=== PATIENT | female | born 1985 | race Caucasian/White ===

== ENCOUNTER 2016-04-01 09:29 | Inpatient (IN) | payer BC ==
[~2016-04-01] VITALS: Ht 157.5 cm; Wt 70.3 kg
[~2016-04-01 09:29] MED LIST: CALNTAB; SLOW47.5
[2016-04-01] MEDS ORDERED: LACTATED RINGER'S 1000 ML INJ 1,000 ML IV PRN (10:26)
[2016-04-01] MEDS ORDERED: LACTATED RINGER'S 1000 ML INJ 1,000 ML IV SCH (10:26)
[2016-04-01] MEDS ORDERED: LIDOCAINE HCL 1% 50 ML VIAL I-DERMAL PRN (10:30)
[2016-04-01] MEDS ORDERED: ONDANSETRON HCL 4 MG/2 ML VIAL IV PRN (10:30)
[2016-04-01] MEDS ORDERED: OXYTOCIN 30 UNITS-500ML PREMIX 500 ML IV ONE (10:30)
[2016-04-01] MEDS ORDERED: LIDOCAINE HCL 1% 50 ML VIAL INFIL PRN (10:30)
[2016-04-01] MEDS ORDERED: SODIUM CHLORID 0.9% 500 ML INJ 500 ML IV PRN (10:30)
[2016-04-01] MEDS ORDERED: MINERAL OIL 10 ML VIAL TOPICAL PRN (10:30)
[2016-04-01] MEDS ORDERED: CITRIC ACID-SODIUM CITRATE LIQ 30 ML UDC PO SCH (10:30)
[2016-04-01] MEDS ORDERED: SODIUM CHLOR 0.9% 1000 ML INJ 1,000 ML IV PRN (10:46)
[2016-04-01 10:47] LABS: AUTOMATED NEUTROPHIL # 8.2 TH/MM3 (1.8-7.7); BASOPHIL # 0.1 TH/MM3 (0-0.2); BASOPHIL % 0.6 % (0.0-2.0); EOSINOPHIL # 0.1 TH/MM3 (0-0.4); EOSINOPHIL % 0.8 % (0.0-4.0); HEMATOCRIT 31.8 % (35.0-46.0); LYMPH % 16.1 % (9.0-44.0); LYMPHOCYTE # 1.7 TH/MM3 (1.0-4.8); MEAN CELL VOLUME 91.4 FL (80.0-100.0); MEAN CORPUSCULAR HEMOGLOBIN 32.8 PG (27.0-34.0); MEAN CORPUSCULAR HGB CONC 35.9 % (32.0-36.0); MONO % 5.4 % (0.0-8.0); NEUT % 77.1 % (16.0-70.0); PLATELET COUNT 72 TH/MM3 (150-450); RED BLOOD COUNT 3.48 MIL/MM3 (4.00-5.30); RED CELL DISTRIBUTION WIDTH 14.8 % (11.6-17.2); WHITE BLOOD COUNT 10.7 TH/MM3 (4.0-11.0)
[2016-04-01 10:55] LABS: BACTERIA, URINE OCC /hpf; BLOOD, URINE NEG (NEG); GLUCOSE,URINE NEG (NEG); KETONE, URINE 40 mg/dL (NEG); MUCUS URINE FEW /lpf (OCC); NITRITE,URINE NEG (NEG); PH, URINE 6.5 (5.0-8.5); SQUAMOUS EPITHELIAL CELL URINE 9 /hpf (0-5)
[2016-04-01 10:56] LABS: URINE COLOR AMBER (YELLW/STRAW)
[2016-04-01 10:58] LABS: COMMENT (UR) CULT NOT INDICATED; CULTURE IF INDICATED CULT NOT INDICATED
[2016-04-01 11:07] LABS: HEMO FLAGS AUTO DIFF
[2016-04-01 11:39] LABS: BANDS 2 % (0-6); CORRECTED NUCLEATED RBC 1 /100 WBC (0-0); EOSINOPHILS 2 % (0-4); METAMYELOCYTES 1 % (0-1); MYELOCYTES 2 % (0-0); PLATELET ESTIMATE SMEAR LOW (NORMAL); PLATELET MORPHOLOGY NORMAL (NORMAL); POLYS (SEG NEUTROPHILS) 79 % (16-70); SCAN/DIFF FINAL DIFF MANUAL; WBC DIFF SAMPLE 100
[2016-04-01 12:34] LABS: ALKALINE PHOSPHATASE 169 U/L (45-117); ALT (GPT) 420 U/L (10-53); ANION GAP 13 MEQ/L (5-15); AST (GOT) 202 U/L (15-37); BICARBONATE 18.1 MEQ/L (21.0-32.0); BLOOD UREA NITROGEN 17 MG/DL (7-18); CHLORIDE 103 MEQ/L (98-107); GLOMERULAR FILTRATION RATE 88 ML/MIN (>89); POTASSIUM 3.8 MEQ/L (3.5-5.1); SODIUM (NA) 134 MEQ/L (136-145); TOTAL BILIRUBIN ADULT 2.6 MG/DL (0.2-1.0); URIC ACID 9.4 MG/DL (2.6-6.0)
[2016-04-01] MEDS ORDERED: MAGNESIUM SULFATE 4 GM PREMIX 100 ML IV ONE (13:00)
[2016-04-01] MEDS ORDERED: SODIUM CHLORIDE 0.9% FLUSH 5 ML FLUSH IV FLUSH PRN (13:00)
[2016-04-01] MEDS ORDERED: SODIUM CHLORIDE 0.9% FLUSH 5 ML FLUSH IV FLUSH SCH (13:00)
[2016-04-01] MEDS ORDERED: DINOPROSTONE 10 MG VAG INSERT VAGINAL ONE (13:00)
[2016-04-01] MEDS ORDERED: MAGNESIUM SULFATE 40 GM PREMIX 1,000 ML IV SCH (13:30)
[2016-04-01] MEDS ORDERED: LIDOCAINE 2% JELLY 30 ML TUBE ONE (13:42)
--- NOTE | 2016-04-01 14:47 | HHI.HP ---
HPI Chief Complaint Contractions, increased blood pressure Date Seen: Apr 01, 2016 Time Seen: 11:00 Travel History International Travel<30 Days: No Contact w/Intl Traveler<30Days: No Known Affected Area: No History of Present Illness HPI 30-year-old at 38 weeks and 6 days of gestation, EDC 04/09/16, patient presents to labor and delivery complaining of contractions, she is noted to have contractions every 2-3 minutes and increased blood pressure, patient denies headaches, blurry vision. She is complaining of right upper quadrant pain and right sided rib pain. He denies leakage of fluids, vaginal bleeding. She reports presence of movements. The patient and in OB ED is: 125/93, 137/95, 133/88, 138/94, 146/97, 149/91. Blood work shows AST 202, ALT 420, uric acid 9.4, urinalysis reveals protein 30, platelets is 72. Findings consistent with possible HELLP syndrome. care is with Dr. David lora. course is unremarkable Para: 0 : 1 Miscarriage: 0 : 0 History Past Medical History Narrative Medical Denies Medical History: Denies Significant Hx Obstetric History Obstetric History Primigravida Past Surgical History Narrative Surgical Status post right knee surgery/arthroscopy Family History Narrative Family History Father with diabetes Social History Alcohol Use: No Tobacco Use: No Substance Abuse: No Allergies-Medications (Allergen,Severity, Reaction): Coded Allergies: No Known Allergies (Unverified , 03/29/16) Home Meds Reported Medications Vitamin (Calna)1 Tab Tab 03/29/16 Ferrous Sulfate Dried (Iron Slow Release)45 Mg Tab 03/29/16 Review of Systems Except as stated in HPI: all other systems reviewed are Neg Cardiovascular: Other (increased blood pressure) Gastrointestinal: Abdominal Pain Genitourinary: Other (contractions) Physical Exam Narrative GENERAL: Well-nourished, well-developed patient. SKIN: Warm and dry. HEAD: Normocephalic and atraumatic. EYES: No scleral icterus. No injection or drainage. ENT: No nasal drainage noted. Mucous membranes pink. Airway patent. NECK: Supple, trachea midline. No JVD. CARDIOVASCULAR: Regular rate and rhythm without murmurs, gallops, or rubs. RESPIRATORY: Breath sounds equal bilaterally. No accessory muscle use. BREASTS: Bilateral exam showed no masses , no retractions, no nipple discharge. ABDOMEN/GI: Abdomen soft, gravid, non-tender, bowel sounds present, no rebound, no guarding Gravid to 39 weeks size Fundal Height: 39 cm GENITOURINARY: External Genitalia: intact and normal in appearance BUS glands: Normal Cervix: 1 cm, 50%, -3, posterior Dilatation: 1 cm Effacement: 50% Station: -3 Presentation: Cephalic Membranes: Intact Uterine Contractions: Patient is radha every 2-3 minutes FHT's: Category: one Baseline: 120s Reactive: Reassuring Variability: Moderate Decels: None EXTREMITIES: No cyanosis or edema. BACK: Nontender without obvious deformity. No CVA tenderness. NEUROLOGICAL: Awake and alert. Motor and sensory grossly within normal limits. Five out of 5 muscle strength in all muscle groups. Normal speech. Data Data Vital Signs Reviewed: Yes Orders Admit To Inpatient (04/01/16 ) Code Status (04/01/16 10:26) Vital Signs (Adult) .Per protocol (04/01/16 10:26) Activity Oob Ad Rosalind (04/01/16 10:26) ^ Heart (04/01/16 10:26) ^ Amnioinfusion (04/01/16 10:26) Urinary Catheter Management .ONCE (04/01/16 10:26) Diet Liquid (04/01/16 Lunch) Lactated Ringer's 1000 Ml Inj (Lr 1000 M (04/01/16 10:26) Lactated Ringer's 1000 Ml Inj (Lr 1000 M (04/01/16 10:26) Sodium Chlorid 0.9% 500 Ml Inj (Ns 500 M (04/01/16 10:30) Sodium Chlor 0.9% 1000 Ml Inj (Ns 1000 M (04/01/16 10:46) Lidocaine 1% Inj (50 Ml) (Xylocaine 1% I (04/01/16 10:30) Citric Acid-Sodium Citrate Liq (Bicitra (04/01/16 10:30) Ondansetron Inj (Zofran Inj) (04/01/16 10:30) Fentanyl Inj (Fentanyl Inj) (04/01/16 10:30) Fentanyl Inj (Fentanyl Inj) (04/01/16 10:30) Complete Blood Count With Diff (04/01/16 10:26) Hold Clot (04/01/16 10:26) Abo/Rh Blood Type (04/01/16 10:26) Urinalysis - C+S If Indicated (04/01/16 10:26) Type And Screen (04/01/16 10:26) Resp Oxygen Non Rebreathe Mask (04/01/16 ) ^ Epidural / Intrathecal Infus (04/01/16 10:26) Oxytocin 30 Units-500ml Premix (Pitocin (04/01/16 10:30) Lidocaine 1% Inj (50 Ml) (Xylocaine 1% I (04/01/16 10:30) Light Mineral Oil (Muri-Lube Oil) (04/01/16 10:30) Inpatient Certification (04/01/16 ) Ob (2e) Additional Admit Info (04/01/16 10:35) Comprehensive Metabolic Panel (04/01/16 11:56) Uric Acid (04/01/16 11:56) Total Protein 24hr Urine (04/01/16 11:56) Creatinine 24 Hr Urine (04/01/16 11:56) Magnesium Sulfate 40 Gm Premix (Magnesiu (04/01/16 13:30) Magnesium Sulfate 4 Gm Premix (Magnesium (04/01/16 13:00) Vital Signs (Adult) Q5MX4,Q15MX4,Q30MX2,Q1H (04/01/16 12:48) Urinary Catheter Management SENDY.Q8H (04/01/16 12:48) ^ Check Deep Tendon Reflexes Q1H (04/01/16 12:48) ^ Labor Induction (04/01/16 12:48) ^ Vaginal Insert (04/01/16 12:48) ^ Vaginal Lavage (04/01/16 12:48) ^ Heart (04/01/16 12:48) Sodium Chloride 0.9% Flush (Ns Flush) (04/01/16 13:00) Sodium Chloride 0.9% Flush (Ns Flush) (04/01/16 13:00) Dinoprostone Vag Insert (Cervidil Vag In (04/01/16 13:00) Activity Bed Rest (04/01/16 12:48) Intake + Output Q1H (04/01/16 12:48) Equip, Iv Pump Triple Use Of (04/01/16 13:18) Lidocaine 2% Jelly (Xylocaine 2% Jelly) (04/01/16 13:42) Protein Creat Ratio, Random Ur (04/01/16 14:09) Fibrinogen (04/01/16 14:09) Labs Laboratory Tests Test 04/01/16 10:30 White Blood Count 10.7 Red Blood Count 3.48 Hemoglobin 11.4 Hematocrit 31.8 Mean Corpuscular Volume 91.4 Mean Corpuscular Hemoglobin 32.8 Mean Corpuscular Hemoglobin 35.9 Concent Red Cell Distribution Width 14.8 Platelet Count 72 Mean Platelet Volume 10.5 Neutrophils (%) (Auto) 77.1 Lymphocytes (%) (Auto) 16.1 Monocytes (%) (Auto) 5.4 Eosinophils (%) (Auto) 0.8 Basophils (%) (Auto) 0.6 Neutrophils # (Auto) 8.2 Lymphocytes # (Auto) 1.7 Monocytes # (Auto) 0.6 Eosinophils # (Auto) 0.1 Basophils # (Auto) 0.1 CBC Comment AUTO DIFF Differential Total Cells 100 Counted Neutrophils % (Manual) 79 Band Neutrophils % 2 Lymphocytes % 11 Monocytes % 3 Eosinophils % 2 Neutrophils # (Manual) 9.0 Metamyelocytes 1 Myelocytes 2 Nucleated Red Blood Cells 1 Differential Comment FINAL DIFF MANUAL Platelet Estimate LOW Platelet Morphology Comment NORMAL Urine Color CARLOS Urine Turbidity HAZY Urine pH 6.5 Urine Specific [place] 1.021 Urine Protein 30 Urine Glucose (UA) NEG Urine Ketones 40 Urine Occult Blood NEG Urine Nitrite NEG Urine Bilirubin SMALL Urine Urobilinogen 4.0 Urine Leukocyte Esterase NEG Urine RBC LESS THAN 1 Urine WBC 4 Urine Squamous Epithelial 9 Cells Urine Bacteria OCC Urine Mucus FEW Microscopic Urinalysis Comment CULT NOT INDICATED Sodium Level 134 Potassium Level 3.8 Chloride Level 103 Carbon Dioxide Level 18.1 Anion Gap 13 Blood Urea Nitrogen 17 Creatinine 0.76 Estimat Glomerular Filtration 88 Rate Random Glucose 66 Uric Acid 9.4 Calcium Level 8.9 Total Bilirubin 2.6 Aspartate Amino Transf 202 (AST/SGOT) Alanine Aminotransferase 420 (ALT/SGPT) Alkaline Phosphatase 169 Total Protein 6.3 Albumin 2.3 Blood Type O POSITIVE Antibody Screen NEGATIVE Blood Bank Comment Band and Hold Assessment/Plan Problem List: (1) 39 weeks gestation of (2) HELLP syndrome in third trimester (3) Pre-eclampsia in third trimester Assessment and Plan at 38 weeks and 6 days of gestation in early labor. Reassuring heart status. GBS negative. 1. Probable HELLP syndrome: * Admit patient to labor and delivery for induction of labor, Cervidil for cervical ripening. * Preeclamptic blood work every 6 hours, * Monitor AST and ALT, fibrinogen level, platelets level. * magnesium sulfate for seizure prophylaxis * Antihypertensive therapy * Bleeding precautions * Type and crossmatch 2 units of blood and platelets 2. Preeclampsia * Monitor blood pressures * Magnesium sulfate for seizure prophylaxis * Watch for signs and symptoms of preeclampsia * Admission blood work Monitor progress of labor, anticipate vaginal delivery. Dr. Holt is notified Discharge Planning We'll discharge patient to home in 2-3 days after delivery Luis Enrique Alonso MD Apr 01, 2016 14:47
[2016-04-01 16:15] LABS: HEMATOCRIT 31.5 % (35.0-46.0); MEAN CELL VOLUME 92.6 FL (80.0-100.0); MEAN CORPUSCULAR HEMOGLOBIN 32.7 PG (27.0-34.0); MEAN CORPUSCULAR HGB CONC 35.3 % (32.0-36.0); PLATELET COUNT 83 TH/MM3 (150-450); RED CELL DISTRIBUTION WIDTH 14.9 % (11.6-17.2); WHITE BLOOD COUNT 10.7 TH/MM3 (4.0-11.0)
[2016-04-01 16:18] LABS: REVIEW FLAG FINAL
[2016-04-01 16:38] LABS: APTT (PATIENT) 27.1 SEC (24.3-30.1); INTERNATIONAL NORMALIZED RATIO 0.9 RATIO; PROTHROMBIN TIME - PATIENT 9.4 SEC (9.8-11.6)
--- NOTE | 2016-04-01 16:55 | PD.LABORPN ---
Subjective Subjective pt c/o mild RUQ pain. denies n/v/SOB/CP Objective Vital Signs 140s/90s Objective Pelvic Exam: Cervix: [-] Dilatation: [3] Effacement: [80] Station: [-1] Presentation: [vtx] Membranes: [ruptured, clears] Uterine Contractions: [-] FHT's: Category: [1] Baseline: [140s] Reactive: [yes] Variability: [-] Decels: [-] Assessment/Plan Problem List: (1) HELLP syndrome in third trimester Plan: cont magnesium s/p cervidil will start pitocin after epidural reviewed disease pathology and possible reasons for Brice Holt MD Apr 01, 2016 16:55
[2016-04-01] MEDS ORDERED: fentaNYL 2MCG-BUPIV 0.125% INJ 100 ML ONE (16:59)
[2016-04-01] MEDS ORDERED: OXYTOCIN 30 UNITS-500ML PREMIX 500 ML IV SCH (17:00)
[2016-04-01] MEDS ORDERED: NO SYSTEM NARCOTICS XX PRN (18:15)
[2016-04-01] MEDS ORDERED: ePHEDrine/NS 50 MG/5 ML SYR IV PRN (18:15)
[2016-04-01] MEDS ORDERED: DO NOT ADMINISTER ANTICOAGULANTS XX PRN (18:15)
[2016-04-01] MEDS ORDERED: fentaNYL 2MCG-BUPIV 0.125% INJ 100 ML EPIDURAL SCH (18:15)
[2016-04-01 21:32] LABS: AUTOMATED NEUTROPHIL # 8.1 TH/MM3 (1.8-7.7); BASOPHIL % 0.3 % (0.0-2.0); EOSINOPHIL # 0.1 TH/MM3 (0-0.4); EOSINOPHIL % 0.7 % (0.0-4.0); HEMATOCRIT 34.1 % (35.0-46.0); LYMPH % 17.8 % (9.0-44.0); LYMPHOCYTE # 1.9 TH/MM3 (1.0-4.8); MEAN CELL VOLUME 93.1 FL (80.0-100.0); MEAN CORPUSCULAR HEMOGLOBIN 33.4 PG (27.0-34.0); MEAN CORPUSCULAR HGB CONC 35.9 % (32.0-36.0); MONO % 4.8 % (0.0-8.0); NEUT % 76.4 % (16.0-70.0); PLATELET COUNT 102 TH/MM3 (150-450); RED BLOOD COUNT 3.66 MIL/MM3 (4.00-5.30); RED CELL DISTRIBUTION WIDTH 14.4 % (11.6-17.2); WHITE BLOOD COUNT 10.6 TH/MM3 (4.0-11.0)
[2016-04-01 21:35] LABS: HEMO FLAGS AUTO DIFF
[2016-04-01 21:50] LABS: APTT (PATIENT) 29.7 SEC (24.3-30.1); INTERNATIONAL NORMALIZED RATIO 0.9 RATIO; PROTHROMBIN TIME - PATIENT 9.4 SEC (9.8-11.6)
[2016-04-01 22:06] LABS: BANDS 5 % (0-6); CORRECTED NUCLEATED RBC 2 /100 WBC (0-0); EOSINOPHILS 2 % (0-4); METAMYELOCYTES 3 % (0-1); NEUTROPHIL # MANUAL DIFF 8.5 TH/MM3 (1.8-7.7); POLYS (SEG NEUTROPHILS) 72 % (16-70); WBC DIFF SAMPLE 100
[2016-04-01 22:07] LABS: KERATOCYTES OCC (NORMAL); OVALOCYTES 1+ (NORMAL); PLATELET ESTIMATE SMEAR LOW (NORMAL); PLATELET MORPHOLOGY NORMAL (NORMAL); POLYCHROMASIA 2.7 % (0.0-1.9); SCAN/DIFF FINAL DIFF MANUAL; SPHEROCYTES 2+ (NORMAL); URIC ACID 9.4 MG/DL (2.6-6.0)
--- NOTE | 2016-04-02 01:45 | PD.OB.DELI ---
Delivery Date: Apr 02, 2016 Anesthesia: Epidural Episiotomy: None Vaginal Delivery: Normal Presentation: Occiput anterior Nuchal Cord: None : Female, Single One Minute : 8 Ten Minute : 9 Weight: 7-5 Infant Care: Suctioned, Spontaneous crying, Responded to stimulation Placenta: Spontaneous delivery, Intact, 3 vessel cord Laceration: Perineal laceration, 3 deg, Involving anal sphincter (repaired with 2-0 and 3-0 chromic in the usual fashion) Repair: Chromic interrupted Brice Holt MD Apr 02, 2016 01:45
[2016-04-02] MEDS ORDERED: MAGNESIUM SULFATE 40 GM PREMIX 1,000 ML IV SCH (01:46)
[2016-04-02] MEDS ORDERED: LACTATED RINGER'S 1000 ML INJ 1,000 ML IV SCH (01:46)
[2016-04-02] MEDS ORDERED: WITCH HAZEL 50%/GLYCERIN 12.5% 40 PAD JAR TOPICAL PRN (02:00)
[2016-04-02] MEDS ORDERED: HYDROCORTISONE/PRAMOXINE RECTAL FOAM 10 GM CAN RECTAL PRN (02:00)
[2016-04-02] MEDS ORDERED: oxyCODONE/ACETAMINOPHEN 5 MG/325 MG TAB PO PRN (02:00)
[2016-04-02] MEDS ORDERED: ZOLPIDEM TARTRATE 5 MG TAB PO PRN (02:00)
[2016-04-02] MEDS ORDERED: ACETAMINOPHEN 325 MG TAB PO PRN (02:00)
[2016-04-02] MEDS ORDERED: CALCIUM GLUCONATE 10% 1 GM/10 ML VIAL IV PUSH PRN (02:00)
[2016-04-02] MEDS ORDERED: OXYTOCIN 10 UNIT/ML AMP XX PRN (02:00)
[2016-04-02] MEDS ORDERED: ALUMINUM/MAGNESIUM/SIMETH 30 ML CUP PO PRN (02:00)
[2016-04-02] MEDS ORDERED: ONDANSETRON ODT 4 MG TAB PO PRN (02:00)
[2016-04-02] MEDS ORDERED: BENZOCAINE 20% TOPICAL SPRAY 60 ML CAN TOPICAL PRN (02:00)
[2016-04-02] MEDS ORDERED: SODIUM CHLORIDE 0.9% FLUSH 5 ML FLUSH IV PRN ×2 (02:00)
[2016-04-02] MEDS ORDERED: OXYTOCIN 30 UNITS-500ML PREMIX 500 ML IV ONE (02:00)
[2016-04-02] MEDS ORDERED: NIFEdipine 10 MG CAP PO PRN ×3 (02:00→02:30)
[2016-04-02] MEDS ORDERED: DOCUSATE SODIUM 50 MG/SENNA 8.6 MG TAB PO PRN (02:00)
[2016-04-02] MEDS ORDERED: LABETALOL HCL 100 MG/20 ML VIAL IV PUSH PRN (03:00)
[2016-04-02 07:12] LABS: ALKALINE PHOSPHATASE 136 U/L (45-117); ALT (GPT) 298 U/L (10-53); ANION GAP 13 MEQ/L (5-15); AST (GOT) 139 U/L (15-37); BICARBONATE 21.8 MEQ/L (21.0-32.0); BLOOD UREA NITROGEN 14 MG/DL (7-18); CHLORIDE 96 MEQ/L (98-107); GLOMERULAR FILTRATION RATE 74 ML/MIN (>89); SODIUM (NA) 131 MEQ/L (136-145); TOTAL BILIRUBIN ADULT 1.8 MG/DL (0.2-1.0); URIC ACID 9.5 MG/DL (2.6-6.0)
[2016-04-02 07:59] VITALS: RESP 20
[2016-04-02 08:00] VITALS: BP 129/76; PULSE 71
[2016-04-02 08:35] LABS: HEMATOCRIT 22.9 % (35.0-46.0); MEAN CELL VOLUME 92.9 FL (80.0-100.0); MEAN CORPUSCULAR HEMOGLOBIN 33.1 PG (27.0-34.0); MEAN CORPUSCULAR HGB CONC 35.6 % (32.0-36.0); PLATELET COUNT 101 TH/MM3 (150-450); RED BLOOD COUNT 2.46 MIL/MM3 (4.00-5.30); RED CELL DISTRIBUTION WIDTH 14.7 % (11.6-17.2); REVIEW FLAG FINAL; WHITE BLOOD COUNT 16.2 TH/MM3 (4.0-11.0)
[2016-04-02 09:00] VITALS: BP 123/82; PULSE 74
[2016-04-02] MEDS ORDERED: SODIUM CHLORIDE 0.9% FLUSH 5 ML FLUSH IV SCH ×2 (09:00)
[2016-04-02 09:48] VITALS: RESP 20
[2016-04-02] MEDS: IBUPROFEN 600 MG TAB PO PRN ×3 (10:09→22:55)
[2016-04-02] MEDS ORDERED: MEASLES, MUMPS, RUBELLA VACCINE 0.5 ML VIAL SQ ONE (16:00)
[2016-04-02] MEDS ORDERED: DIPHTH/TETANUS/ACEL PERTUSSIS (BOOSTER) 0.5 ML VIAL/PFS IM ONE (16:00)
--- NOTE | 2016-04-02 21:27 | HHI.OB ---
Subjective Post Day: 0 Remarks pain controlled, mod lochia, angeli po, +alanis with yellow urine. denies SOB, CP, Objective Vitals/I&O Vital Signs Date Time Temp Pulse Resp B/P Pulse Ox O2 Delivery O2 Flow Rate FiO2 04/02/16 09:48 20 04/02/16 09:00 74 123/82 04/02/16 08:00 71 129/76 04/02/16 07:59 20 Objective Remarks GENERAL: Well-nourished, well-developed patient. CARDIOVASCULAR: Regular rate and rhythm without murmurs, gallops, or rubs. RESPIRATORY: Breath sounds equal bilaterally. No accessory muscle use. ABDOMEN/GI: Abdomen soft, non-tender. Fundus: Firm, non-tender at umbilicus. GENITOURINARY: Light to moderate bleeding. EXTREMITIES: No cyanosis or edema, non-tender, without signs of DVT. Medications and IVs Current Medications Medications (Trade) Dose Ordered Sig/Yue Route Start Time Stop Time Status Last Admin (Lr 1000 ml Inj) 1,000 ml @ 75 mls/hr [id number] IV 04/02/16 01:46 (NS Flush) 2 ml UNSCH PRN IV 04/02/16 02:00 IV Flush 2 ml 2 ml BID IV 04/02/16 09:00 04/02/16 13:34 (Magnesium Sulfate 40 Gm Premix) 1,000 ml @ 50 mls/hr Q20H IV 04/02/16 01:46 04/02/16 07:56 (Calcium Gluconate Inj) 1 gm UNSCH PRN IV PUSH 04/02/16 02:00 (NS Flush) 2 ml BID IV 04/02/16 09:00 (NS Flush) 2 ml UNSCH PRN IV 04/02/16 02:00 (Tylenol) 650 mg Q4H PRN PO 04/02/16 02:00 (Motrin) 600 mg Q6H PRN PO 04/02/16 02:00 04/02/16 16:15 (Percocet 5-325 Mg) 1 tab Q4H PRN PO 04/02/16 02:00 (Percocet 5-325 Mg) 2 tab Q4H PRN PO 04/02/16 02:00 (Americaine 20% Top Spr) 1 spray Q4H PRN TOPICAL 04/02/16 02:00 (Tucks Pads) 1 applic QID PRN TOPICAL 04/02/16 02:00 (Franchesca-Colace) 2 tab Q12H PRN PO 04/02/16 02:00 04/02/16 16:16 (Ambien) 5 mg HS PRN PO 04/02/16 02:00 (Mag-Al Plus Susp Liq) 15 ml Q8H PRN PO 04/02/16 02:00 (Zofran Odt) 4 mg Q6H PRN PO 04/02/16 02:00 (Proctofoam Hc Rectal Foam) 1 applic Q8H PRN RECTAL 04/02/16 02:00 Assessment/Plan Problem List: (1) HELLP syndrome in third trimester Plan: stop magnesium excellent diuresis labs trending down, platelets stable Discharge Planning We'll discharge patient to home in 2-3 days after delivery Brice Holt MD Apr 02, 2016 21:27
[2016-04-02 23:56] VITALS: RESP 18
[2016-04-03] MEDS: oxyCODONE/ACETAMINOPHEN 5 MG/325 MG TAB PO PRN ×3 (09:34→21:28)
[2016-04-03] MEDS: IBUPROFEN 600 MG TAB PO PRN ×3 (09:34→21:28)
[2016-04-04] MEDS: IBUPROFEN 600 MG TAB PO PRN ×2 (03:07→14:18)
[2016-04-04 05:55] LABS: AUTOMATED NEUTROPHIL # 8.8 TH/MM3 (1.8-7.7); BASOPHIL % 0.2 % (0.0-2.0); EOSINOPHIL # 0.1 TH/MM3 (0-0.4); EOSINOPHIL % 1.3 % (0.0-4.0); HEMATOCRIT 23.7 % (35.0-46.0); HEMO FLAGS DIFF FINAL; LYMPH % 19.5 % (9.0-44.0); LYMPHOCYTE # 2.3 TH/MM3 (1.0-4.8); MEAN CELL VOLUME 93.5 FL (80.0-100.0); MEAN CORPUSCULAR HEMOGLOBIN 32.4 PG (27.0-34.0); MEAN CORPUSCULAR HGB CONC 34.6 % (32.0-36.0); MONO % 3.6 % (0.0-8.0); NEUT % 75.4 % (16.0-70.0); PLATELET COUNT 251 TH/MM3 (150-450); RED BLOOD COUNT 2.53 MIL/MM3 (4.00-5.30); RED CELL DISTRIBUTION WIDTH 15.2 % (11.6-17.2); WHITE BLOOD COUNT 11.7 TH/MM3 (4.0-11.0)
[2016-04-04 06:24] LABS: INDIRECT BILIRUBIN 0.2 MG/DL (0.0-0.8); TOTAL BILIRUBIN ADULT 0.6 MG/DL (0.2-1.0); URIC ACID 6.2 MG/DL (2.6-6.0)
[2016-04-04] MEDS: oxyCODONE/ACETAMINOPHEN 5 MG/325 MG TAB PO PRN ×2 (08:26→14:22)
[2016-04-04] MEDS ORDERED: PERC5TAB12 PO (11:30)
== END 2016-04-04 15:32 | disposition home or self-care (01) | DRG 775 ==
LOC: HOBED 09:29 → H2EA 10:42 → H1EA 04-02 21:12
PROVIDERS: ADMIT Obstetrics & Gynecology; ATTEND Obstetrics & Gynecology
PROC: 00HU33Z Insertion of Infusion Device into Spinal Canal, Percutaneous Approach (ICD-10-PCS; 2016-04-01)
PROC: 3E0R3CZ (ICD-10-PCS; 2016-04-01)
PROC: 0DQR0ZZ Repair Anal Sphincter, Open Approach (ICD-10-PCS; principal; 2016-04-02)
PROC: 10E0XZZ Delivery of Products of Conception, External Approach (ICD-10-PCS; 2016-04-02)
DX: O14.24 HELLP syndrome, complicating childbirth (principal); O70.20 Third degree perineal laceration during delivery, unspecified; Z3A.38 38 weeks gestation of pregnancy; Z37.0 Single live birth
CPT/HCPCS: 59025; 76816; 76818; 80053; 80076; 81001; 82565; 82570; 83615; 83735; 84156; 84450; 84460; 84550; 85007; 85025; 85027; 85384; 85610; 85730; 86850; 86900; 86901; 90715; 96372; 99285; J2175; J2550; J2590; J3010; J3475; J7120